=== PATIENT | female | born 1935 | race Asian ===

== ENCOUNTER 2016-09-12 12:25 | Outpatient (CLI) | payer MEDICARE, OTHER | END 2016-09-12 12:26 | disposition home or self-care (01) | DX: J18.9 Pneumonia, unspecified organism (principal); J98.19 Other pulmonary collapse ==

== ENCOUNTER 2016-10-06 12:56 | Emergency (ER) | payer MEDICARE, OTHER | END 2016-10-06 15:45 | disposition home or self-care (01) | DX: R04.2 Hemoptysis (principal); J98.19 Other pulmonary collapse; J44.9 Chronic obstructive pulmonary disease, unspecified; Z85.118 Personal history of other malignant neoplasm of bronchus and lung; Z87.01 Personal history of pneumonia (recurrent); Z87.891 Personal history of nicotine dependence ==

== ENCOUNTER 2016-11-20 16:56 | Outpatient (CLI) | payer MEDICARE, OTHER ==
--- NOTE | 2016-11-20 21:41 | CT Preliminary Report ---
Exam: CT Chest W/O IMPRESSION: 1. Masslike focus of right upper lobe airspace consolidation likely representing tumor right upper lo be and atelectasis is unchanged. There are stable reticulonodular opacities in the right lower lobe. No evidence of disease progression. 2. Stable, indeterminate left adrenal gland nodule. 3. 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 [facility] The call report notification system was initiated by Dr. Alejandro Navarrete at 17:37 hrs on 11/20/16. The above findings were discussed with Dr. Berrios by Dr. Alejandro Navarrete at 21:40 hrs on . SITE ID: [id number]
--- NOTE | 2016-11-20 21:44 | CT Report ---
EXAM: CT CHEST EXAM DATE: 11/20/2016 05:14 PM. CLINICAL HISTORY: Malignant neoplasm of upper lobe. COMPARISONS: 09/18/[address] TECHNIQUE: Routine helical CT imaging was performed through the chest. IV contrast: None. Reconstructions: Coron al and sagittal. In accordance with CT protocol optimization, one or more of the following dose reduction techniques w ere utilized for this exam: automated exposure control, adjustment of mA and/or KV based on patient s ize, or use of iterative reconstructive technique. FINDINGS: Lungs/Pleura: There is a masslike focus of airspace consolidation likely representing tumor and atele ctasis in the paramediastinal right upper lobe measuring 7.0 x 3.8 cm, unchanged from the previous ex am. There is obliteration of the right upper lobe bronchus. Reticular nodular opacities again seen in the superior segment of the right lower lobe, unchanged. No new lung nodules. No pleural effusion or pneumothorax. Mediastinum: Limited without contrast, no obvious lymphadenopathy. Diffuse atherosclerotic changes th roughout the aorta. There is an aneurysm involving the ascending aorta measuring 6.1 x 6.0 cm. There is also aneurysmal dilatation of the aortic isthmus to 5 cm. These are unchanged. Bones: Unremarkable. Visualized Abdomen: Stable 1.3 cm left adrenal gland nodule. The nodule demonstrates an attenuation v alue 34 Hounsfield units. Subcentimeter hypodensity in the left hepatic lobe is also unchanged. No ne w findings. Other: None. IMPRESSION: 1. Masslike focus of right upper lobe airspace consolidation likely representing tumor right upper lo be and atelectasis is unchanged. There are stable reticulonodular opacities in the right lower lobe. No evidence of disease progression. 2. Stable, indeterminate left adrenal gland nodule. 3. 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 [facility] The call report notification system was initiated by Dr. Alejandro Navarrete at 17:37 hrs on 11/20/16. The above findings were discussed with Dr. Berrios by Dr. Alejandro Navarrete at 21:40 hrs on . Referring Provider Line: [phone] SITE ID: [id number]
== END 2016-11-20 16:57 | disposition home or self-care (01) ==
LOC: DI 16:56
PROVIDERS: ATTEND Family Medicine
DX: C34.10 Malignant neoplasm of upper lobe, unspecified bronchus or lung (principal); E27.9 Disorder of adrenal gland, unspecified; J98.11 Atelectasis
CPT/HCPCS: 71250

== ENCOUNTER 2017-02-13 12:45 | Inpatient (IN) | payer MEDICARE, OTHER ==
--- NOTE | 2017-02-13 14:22 | ED Physician Documentation ---
PD HPI DYSPNEA - Stated complaint Stated Complaint: COUGH - Chief complaint Chief Complaint: Resp - History obtained from History obtained from: Patient - History of Present Illness Timing - onset: How many weeks ago (patient has been having progressively worse dyspnea for several weeks. Seen about a month ago on 01/08/17 in Oncology clinic with dyspnea and had xray showing mediastinal mass (prior history of lung CA) and had then outpt bronchoscopy and biopsy by Pulmonary in [place] about 2 weeks ago. She has had increasing dpsynea concurrent with that. Has had 4-5 days of some cough as well. With the increasing dyspnea,) Timing - details: Gradual onset, Still present Inciting event(s): No: URI Worsened by: No: Laying flat, Coughing Associated symptoms: No: Fever, Cough, Wheezing, Palpitations, Bilateral edema Similar symptoms before: Has not had sx before Recently seen: Not recently seen Review of Systems Constitutional: denies: Fever, Chills Nose: denies: Rhinorrhea / runny nose, Congestion Throat: denies: Sore throat Cardiac: denies: Chest pain / pressure, Palpitations Respiratory: denies: Dyspnea, Cough, Wheezing GI: denies: Nausea, Vomiting, Diarrhea : denies: Dysuria, Frequency Musculoskeletal: reports: Neck pain, Back pain, Extremity pain Neurologic: denies: Generalized weakness, Focal weakness, Numbness, Near syncope PD PAST MEDICAL HISTORY - Past Medical History Cardiovascular: None Respiratory: Other Neuro: None Endocrine/Autoimmune: None GI: None PHARMACY BENEFIT MANAGER: None : None HEENT: None Psych: None Musculoskeletal: None Derm: None - Past Surgical History Past Surgical History: Yes General: Colonoscopy - Present Medications Home Medications: Ambulatory Orders Medication Instructions Recorded Confirmed Aspirin [Aspir 81] 81 mg PO DAILY 01/17/13 02/13/17 Calcium Carbonate/Vitamin D3 2 each PO DAILY 01/17/13 02/13/17 [Calcarb 600 W-Vitamin D Tab] Acetaminophen [Tylenol] 650 mg PO TID PRN 07/14/13 02/13/17 [place]-3/Dha/Epa/Fish Oil [[place] 3 1 tab PO DAILY 11/22/15 02/13/17 500 Softgel] Fluticasone/Salmeterol [Advair 1 puffs INH BID 02/13/17 02/13/17 250-50 Diskus] Tiotropium [place] [Spiriva] 1 puffs INH DAILY 02/13/17 02/13/17 - Allergies Allergies/Adverse Reactions: Allergies Allergy/AdvReac Type Severity Reaction Status Date / Time No Known Drug Allergies Allergy Verified 02/13/17 13:03 - Living Situation Living Situation: reports: With spouse/s.o. Living Arrangement: reports: At home - Social History Does the pt smoke?: Yes Smoking Status: Former smoker Does the pt drink ETOH?: No Does the pt have substance abuse?: No - Family History Family history: reports: Non contributory - Immunizations Immunizations are current?: No Immunizations: TDAP >10years/unknown - POLST Patient has POLST: No PD ED PE NORMAL - Vitals Vital signs reviewed: Yes (Oxygenation good on NC; vitals are stable. ) - General General: Alert and oriented X 3, Well developed/nourished - HEENT HEENT: Atraumatic, Ears normal, Moist mucous membranes, Pharynx benign - Neck Neck: Supple, no meningeal sign, No adenopathy, No bruit, Other (JVD noted at 45 degrees. ) - Cardiac Cardiac: RRR, No murmur - Respiratory Respiratory: No: Clear bilaterally - Abdomen Abdomen: Soft, Non tender - Female Female : Deferred - Rectal Rectal: Deferred - Back Back: No CVA TTP - Derm Derm: Normal color, Warm and dry - Extremities Extremities: No tenderness to palpate, Normal ROM s pain, No edema, No calf tenderness / cord - Neuro Neuro: Alert and oriented X 3, No motor deficit, Normal speech Results - Vitals Vitals: Vital Signs - 24 hr 02/13/17 02/13/17 02/13/17 12:57 13:41 15:10 Temperature 36.3 C L Heart Rate 98 95 97 Respiratory 24 22 22 Rate Blood Pressure 130/58 L 131/78 H O2 Saturation 99 99 02/13/17 02/13/17 02/13/17 15:33 17:07 17:10 Temperature Heart Rate 97 94 94 Respiratory 20 30 H 26 H Rate Blood Pressure 132/66 H 138/108 H O2 Saturation 99 96 Oxygen O2 Source Nasal cannula Oxygen Flow Rate 4 - Rads (name of study) chest Radiology: Prelim report reviewed (apical right pneumothorax, right mediastinal mass, and moderate right pleural effusion, comparable to CT yesterday. ) PD MEDICAL DECISION MAKING - ED course Complexity details: reviewed results, considered differential (chest xray today seems comparable degree of PTX to CT yesterday. She had labs done just yesterday outpatient, so did not repeat them right off. Has PTX with bronchoscopy about 2 weeks ago, seems a bit long for pneumo to persist but could be. Her increasing dyspnea could reflect increasing effusion instead. ), d /w patient, d/w [facility] operations consultant (Dr. Figueroa, Surgery, and Dr. Flores, Hospitalist after talking with Dr. Kern, Oncology. ) Departure - Departure Disposition: 66 [facility] DC/Xfer Clinical Impression: Pleural effusion, Moderate COPD (chronic obstructive pulmonary disease) Pneumothorax Qualifiers: Pneumothorax type: postprocedural Qualified Code(s): J95.811 - Postprocedural pneumothorax Lung cancer Qualifiers: Laterality: right Lung location: upper lobe of lung Qualified Code(s): C34.11 - Malignant neoplasm of upper lobe, right bronchus or lung Dyspnea Qualifiers: Dyspnea type: shortness of breath Qualified Code(s): R06.02 - Shortness of breath Condition: Stable Discharge Date/Time: 02/13/17 18:04
[2017-02-13] MEDS ORDERED: IPRATROPIUM/ALBUTEROL 3 ML NEB INH STA (14:56)
--- NOTE | 2017-02-13 16:05 | XRAY Preliminary Report ---
Exam: XR Chest 2 View PA/LAT IMPRESSION: 1. Large right hilar or right paratracheal mass suspicious for neoplastic process. 2. Small right pneumothorax with small to moderate right pleural effusion. 3. Findings similar to CT chest yesterday. [facility] SITE ID: [id number]
--- NOTE | 2017-02-13 16:08 | XRAY Report ---
EXAM: CHEST RADIOGRAPHY EXAM DATE: 02/13/2017 03:54 PM. CLINICAL HISTORY: Cough and dyspnea. COMPARISON: Chest CT yesterday. TECHNIQUE: 2 views. FINDINGS: Lungs/Pleura: There is a small right apical pneumothorax with pleural separation of one knee 4 mm. Th ere is a small to moderate volume of right pleural fluid which has changed in location compared to th e previous CT. Left lung appears grossly clear. The trachea is midline. Mediastinum: There is a large right paratracheal or right hilar mass which persists. There is aortic arch atherosclerotic calcification. Other: None. IMPRESSION: 1. Large right hilar or right paratracheal mass suspicious for neoplastic process. 2. Small right pneumothorax with small to moderate right pleural effusion. 3. Findings similar to CT chest yesterday. [facility] Referring Provider Line: [phone] SITE ID: [id number]
[2017-02-13] MEDS ORDERED: DEXAMETHASONE 10 MG/ML VIAL IVP STA (16:50)
[2017-02-13] MEDS ORDERED: ALBUTEROL NEB 2.5 MG/3 ML INH STA (16:50)
[2017-02-13] MEDS ORDERED: DEXAMETHASONE 10 MG/ML VIAL ONE (17:01)
[2017-02-13] MEDS ORDERED: ONDANSETRON 4 MG/2 ML VIAL IVP PRN (17:16)
[2017-02-13] MEDS ORDERED: ZOLPIDEM 5 MG TABLET PO PRN (17:16)
[2017-02-13] MEDS ORDERED: HYDROcod/ACETAM 10 MG/325 MG TABLET PO PRN (17:16)
[2017-02-13] MEDS ORDERED: ALBUTEROL NEB 2.5 MG/3 ML INH PRN (17:16)
[2017-02-13] MEDS ORDERED: SODIUM CHLORIDE FLUSH 0.9% 10 ML SYRINGE IVP PRN (17:16)
[2017-02-13] MEDS ORDERED: ACETAMINOPHEN 325 MG TABLET PO PRN (17:16)
[2017-02-13] MEDS ORDERED: HYDROcod/ACETAM 5/325 MG TABLET PO PRN (17:16)
[2017-02-13] MEDS: NS W/20 MEQ KCL 1,000 ML IV SCH (19:36)
[2017-02-13] MEDS: cefTRIAXone 2 GM in SODIUM CHLORIDE 0.9% MINIBAG 100 ML IV SCH (19:36)
[2017-02-13] MEDS: SODIUM CHLORIDE FLUSH 0.9% 10 ML SYRINGE IVP SCH (19:44)
[2017-02-13] MEDS: FORMOTEROL FUMARATE NEB 20 MCG/2 ML INH SCH (20:14)
[2017-02-13] MEDS: BUDESONIDE 0.5 MG/2 ML NEB INH SCH (20:14)
[2017-02-13] MEDS: IPRATROPIUM/ALBUTEROL 3 ML NEB INH PRN (20:14)
[2017-02-13] MEDS: AZITHROMYCIN INJ 500 MG in SODIUM CHLORIDE 0.9% 250 ML IV SCH (20:51)
[2017-02-14] MEDS: SODIUM CHLORIDE FLUSH 0.9% 10 ML SYRINGE IVP SCH ×3 (05:13→20:25)
[2017-02-14 06:15] LABS: BASOPHILS % (AUTO) 0.1 %; HGB - HEMOGLOBIN 11.5 g/dL (12.0-16.0); LYMPHOCYTES % (AUTO) 4.9 %; MEAN CORPUSCULAR HEMOGLOBIN 30.3 pg (27.0-31.0); MEAN CORPUSCULAR HGB CONC 32.9 g/dL (32.0-36.0); MEAN PLATELET VOLUME 6.1 fL (7.9-10.8); MONOCYTES % (AUTO) 1.3 %; NEUTROPHILS % (AUTO) 93.7 %; RED BLOOD COUNT 3.81 10^6/uL (4.20-5.40); RED CELL DISTRIBUTION WIDTH 13.8 % (12.0-15.0); UNCORRECTED WHITE BLOOD COUNT 9.6 x10^3/uL; WHITE BLOOD COUNT 9.6 x10^3/uL (4.8-10.8)
[2017-02-14 06:19] LABS: CALCIUM 8.4 mg/dL (8.5-10.3); CREATININE 0.3 mg/dL (0.4-1.0); POTASSIUM 4.4 mmol/L (3.5-5.0)
[2017-02-14 06:42] LABS: BAND NEUTROPHILS % (MANUAL) 10 %; LYMPHOCYTES % (MANUAL) 7 %; NEUTROPHILS % (MANUAL) 83 %; PLATELET ESTIMATE, MANUAL NORMAL (130-450,000) (NORMAL); TOTAL CELLS COUNTED 100
[2017-02-14 06:43] LABS: NP AUTO DIFFERENTIAL? YES; NP MAN DIFFERENTIAL? NO
[2017-02-14] MEDS: FORMOTEROL FUMARATE NEB 20 MCG/2 ML INH SCH (07:33)
[2017-02-14] MEDS: BUDESONIDE 0.5 MG/2 ML NEB INH SCH (07:34)
[2017-02-14] MEDS: cefTRIAXone 2 GM in SODIUM CHLORIDE 0.9% MINIBAG 100 ML IV SCH (08:13)
[2017-02-14] MEDS: SACCHAROMYCES BOULARDII 250 MG CAPSULE PO SCH ×2 (08:13→16:23)
[2017-02-14] MEDS: ENOXAPARIN 40 MG/0.4 ML SYRINGE SUBQ SCH (08:14)
[2017-02-14] MEDS: POLYETHYLENE GLYCOL 3350 17 GM PACKET PO SCH (08:16)
[2017-02-14 08:57] LABS: INR 1.1 (0.8-1.2); PT - PROTHROMBIN TIME 12.6 secs (9.9-12.6)
[2017-02-14 09:05] LABS: PARTIAL THROMBOPLASTIN TIME 31.5 secs (24.9-33.3)
[2017-02-14] MEDS: AZITHROMYCIN INJ 500 MG in SODIUM CHLORIDE 0.9% 250 ML IV SCH (09:41)
--- NOTE | 2017-02-14 11:18 | PROVIDER PROGRESS NOTE ---
Assessment/Plan - Problem List (1) Lung cancer Qualifiers: Laterality: right Lung location: upper lobe of lung Qualified Code(s): C34.11 - Malignant neoplasm of upper lobe, right bronchus or lung Assessment/Plan: She has recurrent adenocarcinoma. It is not clear that she and know that. Daughter from [place] was surprised to hear that. Have a call into Dr. Kern. will ask her about communication and plan She is very sx from it. (2) Pleural effusion Assessment/Plan: She is to get it drained this afternoon Will also see if can do a chest tube for the pneumo. (3) Pneumothorax Qualifiers: Pneumothorax type: postprocedural Qualified Code(s): J95.811 - Postprocedural pneumothorax; J95.81 - Postprocedural pneumothorax and air leak Assessment/Plan: see above Not clear she is sz from it. (4) Pneumonia Assessment/Plan: She has R lower lobe pneumonia. She is on antibx she was on amoxicillin for without improvement. Will have to repeat CXR or CAT. - Current Meds Current Meds: Current Medications Generic Name Dose Route Start Last Admin Trade Name Freq PRN Reason Stop Dose Admin Albuterol 2.5 mg 02/13/17 17:16 02/14/17 02:34 INH 2.5 mg Q4HR PRN Administration Wheezing Albuterol/Ipratropium 3 ml 02/13/17 17:16 02/13/17 20:14 Duoneb INH 3 ml RTQID PRN Administration Wheezing Budesonide 0.5 mg 02/13/17 19:00 02/14/17 07:34 Pulmicort INH 0.5 mg RTBID RUDDY Administration Enoxaparin Sodium 40 mg 02/14/17 09:00 02/14/17 08:14 Lovenox SUBQ Not Given DAILY RUDDY Formoterol Fumarate 20 mcg 02/13/17 19:00 02/14/17 07:33 Perforomist INH 20 mcg RTBID RUDDY Administration Potassium Chloride/Sodium Chloride 1,000 mls @ 75 mls/hr 02/13/17 18:00 19:36 Normal Saline 0.9% W/20 Meq Kcl IV 75 mls/hr .[id number] RUDDY Administration Azithromycin 500 mg/ Sodium 250 mls @ 250 mls/hr 02/13/17 20:00 02/14/17 09:41 Chloride IV 250 mls/hr DAILY@1000 RUDDY Administration Ceftriaxone Sodium 2 gm/ 100 mls @ 200 mls/hr 02/13/17 19:00 02/14/17 08:13 Sodium Chloride IV 200 mls/hr DAILY RUDDY Administration Polyethylene Glycol 17 gm 02/14/17 09:00 02/14/17 08:16 Miralax PO Not Given DAILY RUDDY Saccharomyces Boulardii 250 mg 02/14/17 08:00 02/14/17 08:13 Florastor PO 250 mg BIDWM RUDDY Administration Sodium Chloride 10 ml 02/13/17 22:00 02/14/17 05:13 Normal Saline Flush 0.9% IVP Not Given Q8HR RUDDY - Lab Result Fish Bone Diagrams: 02/14/17 05:42 02/14/17 05:42 - Additional Planning My Orders: My Active Orders 02/13/17 19:00 Budesonide [Pulmicort] 0.5 mg INH RTBID Formoterol Fumarate [Perforomist] 20 mcg INH RTBID 02/13/17 20:21 RT [Nebulizer/MDI Tx.] [RC] QID Subjective - Subjective Patient Reports: Resting Comfortably, Fatigue, Pain, Shortness of Breath Nursing Reports: Pain, Shortness of Breath Objective Vital Signs: Vital Signs - 24 hr 02/13/17 02/13/17 02/13/17 17:55 18:10 20:15 Temperature 37.1 C Heart Rate 96 96 Heart Rate [ 98 Brachial] Respiratory 28 H 24 24 Rate Blood Pressure 122/62 Blood Pressure 140/82 H [Left Brachial artery] O2 Saturation 96 96 02/13/17 02/14/17 02/14/17 23:39 07:33 08:15 Temperature 36.4 C L 36.6 C Heart Rate 95 Heart Rate [ 90 96 Brachial] Respiratory 24 24 19 Rate Blood Pressure Blood Pressure 144/81 H 126/75 [Left Brachial artery] O2 Saturation 96 98 Oxygen O2 Source Nasal cannula I&O (Last 24 Hrs): Intake and Output Totals x24h 02/12/17 02/13/17 02/14/17 23:59 23:59 23:59 Intake Total 770 100 Output Total 300 250 Balance 470 -150 General: Alert, Oriented x3, Cooperative HEENT: PERRLA, EOMI Neck: No JVD, No thyromegaly Neuro: Alert Cardiovascular: Regular rate, No murmurs Respiratory: Wheezes, Rales, Rhonchi Abdomen: Soft, No tenderness Skin: No rashes, No breakdown - Results Results: Laboratory Results WBC 9.6 x10^3/uL (4.8-10.8) 02/14/17 05:42 RBC 3.81 10^6/uL (4.20-5.40) L 02/14/17 05:42 Hgb 11.5 g/dL (12.0-16.0) L 02/14/17 05:42 Hct 35.0 % (37.0-47.0) L 02/14/17 05:42 MCV 92.0 fL (81.0-99.0) 02/14/17 05:42 MCH 30.3 pg (27.0-31.0) 02/14/17 05:42 MCHC 32.9 g/dL (32.0-36.0) 02/14/17 05:42 RDW 13.8 % (12.0-15.0) 02/14/17 05:42 Plt Count 317 10^3/uL (130-450) 02/14/17 05:42 MPV 6.1 fL (7.9-10.8) L 02/14/17 05:42 Neut # Not Reportable 02/14/17 05:42 Lymph # Not Reportable 02/14/17 05:42 [place] # Not Reportable 02/14/17 05:42 Eos # Not Reportable 02/14/17 05:42 Baso # Not Reportable 02/14/17 05:42 Absolute Nucleated RBC Not Reportable 02/14/17 05:42 Total Counted 100 02/14/17 05:42 Band Neuts % (Manual) 10 % (0-10) 02/14/17 05:42 Neutrophils # (Manual) 8.9 10^3/uL (1.5-6.6) H 02/14/17 05:42 Lymphocytes # (Manual) 0.7 10^3/uL (1.5-3.5) L 02/14/17 05:42 Nucleated RBCs Not Reportable 02/14/17 05:42 Differential Comment MANUAL DIFFERENTIAL 02/14/17 05:42 Platelet Estimate NORMAL (130-450,000) (NORMAL) 02/14/17 05:42 RBC Morph Micro Appear NORMAL APPEARANCE (NORMAL) 02/14/17 05:42 PT 12.6 secs (9.9-12.6) 02/14/17 08:38 INR 1.1 (0.8-1.2) 02/14/17 08:38 APTT 31.5 secs (24.9-33.3) 02/14/17 08:38 Sodium 137 mmol/L (135-145) 02/14/17 05:42 Potassium 4.4 mmol/L (3.5-5.0) 02/14/17 05:42 Chloride 100 mmol/L (101-111) L 02/14/17 05:42 Carbon Dioxide 29 mmol/L (21-32) 02/14/17 05:42 Anion Gap 8.0 (6-13) 02/14/17 05:42 BUN 9 mg/dL (6-20) 02/14/17 05:42 Creatinine 0.3 mg/dL (0.4-1.0) L 02/14/17 05:42 Estimated GFR (MDRD) 212 (>89) 02/14/17 05:42 Glucose 177 mg/dL (70-100) H 02/14/17 05:42 Calcium 8.4 mg/dL (8.5-10.3) L 02/14/17 05:42 - Procedures Procedures: Procedures INCIS W REM OF FORIEGN BODY OR DEV FROM SKIN & SUBCUT TISSUE (08/25/13) INSERTION OF TOTALLY IMPLANTABLE VASC ACCESS DEVIC (03/20/13)
--- NOTE | 2017-02-14 11:36 | PROVIDER PROGRESS NOTE ---
Assessment/Plan - Problem List (1) Pneumothorax Qualifiers: Pneumothorax type: postprocedural Qualified Code(s): J95.811 - Postprocedural pneumothorax; J95.81 - Postprocedural pneumothorax and air leak Assessment/Plan: 82 yo Female with multiple medical problems including Right upper lobe Lung CA, found to have small PTX and Pleural Effusion Patient to go to IR today for drainage and possible pigtail catheter placement. Will Place chest tube if patient's condition not improving or not able to improve after IR Medical team to manage - Current Meds Current Meds: Current Medications Generic Name Dose Route Start Last Admin Trade Name Freq PRN Reason Stop Dose Admin Albuterol 2.5 mg 02/13/17 17:16 02/14/17 02:34 INH 2.5 mg Q4HR PRN Administration Wheezing Albuterol/Ipratropium 3 ml 02/13/17 17:16 02/13/17 20:14 Duoneb INH 3 ml RTQID PRN Administration Wheezing Budesonide 0.5 mg 02/13/17 19:00 02/14/17 07:34 Pulmicort INH 0.5 mg RTBID RUDDY Administration Enoxaparin Sodium 40 mg 02/14/17 09:00 02/14/17 08:14 Lovenox SUBQ Not Given DAILY RUDDY Formoterol Fumarate 20 mcg 02/13/17 19:00 02/14/17 07:33 Perforomist INH 20 mcg RTBID RUDDY Administration Potassium Chloride/Sodium Chloride 1,000 mls @ 75 mls/hr 02/13/17 18:00 19:36 Normal Saline 0.9% W/20 Meq Kcl IV 75 mls/hr .[id number] RUDDY Administration Azithromycin 500 mg/ Sodium 250 mls @ 250 mls/hr 02/13/17 20:00 02/14/17 09:41 Chloride IV 250 mls/hr DAILY@1000 RUDDY Administration Ceftriaxone Sodium 2 gm/ 100 mls @ 200 mls/hr 02/13/17 19:00 02/14/17 08:13 Sodium Chloride IV 200 mls/hr DAILY RUDDY Administration Polyethylene Glycol 17 gm 02/14/17 09:00 02/14/17 08:16 Miralax PO Not Given DAILY RUDDY Saccharomyces Boulardii 250 mg 02/14/17 08:00 02/14/17 08:13 Florastor PO 250 mg BIDWM RUDDY Administration Sodium Chloride 10 ml 02/13/17 22:00 02/14/17 05:13 Normal Saline Flush 0.9% IVP Not Given Q8HR RUDDY - Lab Result Fish Bone Diagrams: 02/14/17 05:42 02/14/17 05:42 Subjective - Subjective Patient Reports: Resting Comfortably (Pt seen this am.) Nursing Reports: No Complaints Objective Vital Signs: Vital Signs - 24 hr 02/13/17 02/13/17 02/13/17 17:55 18:10 20:15 Temperature 37.1 C Heart Rate 96 96 Heart Rate [ 98 Brachial] Respiratory 28 H 24 24 Rate Blood Pressure 122/62 Blood Pressure 140/82 H [Left Brachial artery] O2 Saturation 96 96 02/13/17 02/14/17 02/14/17 23:39 07:33 08:15 Temperature 36.4 C L 36.6 C Heart Rate 95 Heart Rate [ 90 96 Brachial] Respiratory 24 24 19 Rate Blood Pressure Blood Pressure 144/81 H 126/75 [Left Brachial artery] O2 Saturation 96 98 Oxygen O2 Source Nasal cannula I&O (Last 24 Hrs): Intake and Output Totals x24h 02/12/17 02/13/17 02/14/17 23:59 23:59 23:59 Intake Total 770 100 Output Total 300 250 Balance 470 -150 General: Alert, Oriented x3 HEENT: EOMI Neck: Supple Cardiovascular: Regular rate Respiratory: Rales (Right side), Rhonchi Abdomen: Normal bowel sounds, Soft - Results Results: Laboratory Results WBC 9.6 x10^3/uL (4.8-10.8) 02/14/17 05:42 RBC 3.81 10^6/uL (4.20-5.40) L 02/14/17 05:42 Hgb 11.5 g/dL (12.0-16.0) L 02/14/17 05:42 Hct 35.0 % (37.0-47.0) L 02/14/17 05:42 MCV 92.0 fL (81.0-99.0) 02/14/17 05:42 MCH 30.3 pg (27.0-31.0) 02/14/17 05:42 MCHC 32.9 g/dL (32.0-36.0) 02/14/17 05:42 RDW 13.8 % (12.0-15.0) 02/14/17 05:42 Plt Count 317 10^3/uL (130-450) 02/14/17 05:42 MPV 6.1 fL (7.9-10.8) L 02/14/17 05:42 Neut # Not Reportable 02/14/17 05:42 Lymph # Not Reportable 02/14/17 05:42 [place] # Not Reportable 02/14/17 05:42 Eos # Not Reportable 02/14/17 05:42 Baso # Not Reportable 02/14/17 05:42 Absolute Nucleated RBC Not Reportable 02/14/17 05:42 Total Counted 100 02/14/17 05:42 Band Neuts % (Manual) 10 % (0-10) 02/14/17 05:42 Neutrophils # (Manual) 8.9 10^3/uL (1.5-6.6) H 02/14/17 05:42 Lymphocytes # (Manual) 0.7 10^3/uL (1.5-3.5) L 02/14/17 05:42 Nucleated RBCs Not Reportable 02/14/17 05:42 Differential Comment MANUAL DIFFERENTIAL 02/14/17 05:42 Platelet Estimate NORMAL (130-450,000) (NORMAL) 02/14/17 05:42 RBC Morph Micro Appear NORMAL APPEARANCE (NORMAL) 02/14/17 05:42 PT 12.6 secs (9.9-12.6) 02/14/17 08:38 INR 1.1 (0.8-1.2) 02/14/17 08:38 APTT 31.5 secs (24.9-33.3) 02/14/17 08:38 Sodium 137 mmol/L (135-145) 02/14/17 05:42 Potassium 4.4 mmol/L (3.5-5.0) 02/14/17 05:42 Chloride 100 mmol/L (101-111) L 02/14/17 05:42 Carbon Dioxide 29 mmol/L (21-32) 02/14/17 05:42 Anion Gap 8.0 (6-13) 02/14/17 05:42 BUN 9 mg/dL (6-20) 02/14/17 05:42 Creatinine 0.3 mg/dL (0.4-1.0) L 02/14/17 05:42 Estimated GFR (MDRD) 212 (>89) 02/14/17 05:42 Glucose 177 mg/dL (70-100) H 02/14/17 05:42 Calcium 8.4 mg/dL (8.5-10.3) L 02/14/17 05:42 - Procedures Procedures: Procedures INCIS W REM OF FORIEGN BODY OR DEV FROM SKIN & SUBCUT TISSUE (08/25/13) INSERTION OF TOTALLY IMPLANTABLE VASC ACCESS DEVIC (03/20/13)
--- NOTE | 2017-02-14 13:16 | HISTORY & PHYSICAL EXAMINATION ---
DATE OF ADMISSION: 02/13/2017 CHIEF COMPLAINT: Shortness of breath. IDENTIFYING INFORMATION: The patient and her , primary source of history supplemented by son and daughter who are also present. The patient's information is also supplemented by the handoff from the emergency department physician, Dr. Oneill. Personal review of past medical records and data collected during this visit also used along with her examination and evaluation of this person in preparation of this document. HISTORY OF PRESENT ILLNESS: Jigar having increasing shortness of breath, she has had a bad cough, she has had problems with being more fatigued and not being able to walk very much. The patient says she has not had any fevers. The patient did have hemoptysis last month and went to [place] and had a bronchoscopy done. Two days ago, the patient saw her oncologist, Dr. Aneta Kern. The patient had a CT scan done yesterday as well. The patient came to the emergency department today because she was so short of breath. In the emergency department, she was found to have, on chest x-ray and review of the CT scan from yesterday, a small right upper lobe pneumothorax. Also, the CT showed an infiltrate in the right lower lobe which was considered by Dr. Aneta Kern to be postobstructive pneumonia that she previously tried to treat with amoxicillin alone. The patient was still getting worse and she had the pleural effusion on the right side as well. REVIEW OF SYSTEMS: The patient has had no fever, chills, sweats, although she says she sometimes feels hot. The patient has had a persistent nasty cough, which despite hydrocodone has not improved other than she does not cough as hard. Her says it is like she cannot do anything but cough. The patient has had loss of appetite and loss of weight, 10 pounds over the last month. The patient's bowels have been okay. Urination has been okay. The rest of the complete review of systems is negative. PAST MEDICAL HISTORY: Remarkable for lung cancer in 2012 with chemotherapy. SURGICAL HISTORY: Colonoscopy. ALLERGIES: NONE KNOWN. MEDICATIONS 1. Aspirin 81 mg a day. 2. Calcium carbonate and vitamin D2, each daily. 3. Lorazepam 0.5, 1 mg q.i.d. 4. Spiriva 18 mcg a day. 5. Hydrocortisone topical t.i.d. 6. Tylenol 650 three times a day as needed. 7. Advair 100/50 inhaler twice a day. PERSONAL AND SOCIAL HISTORY: The patient was born in [place], raised there until she her at age 21. The patient smoked, quit 15 years ago. She has never drank alcohol. The patient is and has 4 children, 3 girls and 1 boy. FAMILY HISTORY: Negative for diabetes. She does not know her family history other than that. Unknown if there is heart disease or other cancers in the family. PHYSICAL EXAMINATION VITAL SIGNS: 36.3, 98, 24, 130/58, 99 on 4 liters. GENERAL: The patient is a well-developed and well-nourished female, small stature. EYES: EOMs within normal limits. PERRL. Nonicteric. MOUTH: Edentulous, somewhat dry mucous membranes. NECK: No lymphadenopathy, no thyromegaly. No tracheal deviation. CHEST WALL: Symmetric, nontender. No breast exam conducted. HEART: Sinus rhythm. No murmur, rubs, clicks. LUNGS: She has rales and rhonchi primarily of right lung, diminished in the base on the right more than the left. Occasional wheeze as well. ABDOMEN: Soft, nontender. Normal bowel sounds. No hepatosplenomegaly. RECTAL/GENITAL: Exams not done. VASCULAR: She has palpable pulses to the posterior tibial bilaterally. No cyanosis. EXTREMITIES: No edema. NEUROLOGIC: Cognitive intact. Cranial nerves intact. Motor intact. The patient is hard of hearing and wears a hearing aid normally but left it at home. SKIN: No suspicious lesions or dermatitis on limited exam. FINDINGS: Chest CT, impression: Progression of disease, moderate right effusion with small right pneumothorax, which may be related to previous thoracentesis. Progression of left adrenal lesion and retroperitoneal adenopathy. The patient's laboratory from 02/12/2017 shows white count 10.4, hemoglobin and hematocrit 12 and 36, platelet count 338. The patient's creatinine is 0.5, LDH 135 and globulin 4.7. SUMMARY: This is an 82-year-old female with increasing cough and shortness of breath, previously had a biopsy at the end of last month that showed adenocarcinoma. It is unclear if the patient and family know the results. She comes into the hospital today with right pleural effusion, pneumothorax, and CT scan from yesterday shows increasing carcinoma. She was admitted for the pneumonia and evaluation for a thoracentesis for the fluid in the lung and a chest tube for the pneumothorax. DIAGNOSES 1. Pneumonia. 2. 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 3. Right pleural effusion. 4. Presumptive malignant effusion. 5. Pneumothorax, uncertain etiology. DISCUSSION/DECISION MAKING 1. The pneumonia will be treated with IV antibiotics, Rocephin and Zithromax, may expand coverage if needed given her relative immunocompromised status and her pneumonia, which may be postobstructive. 2. Recurrent adenoma. The patient will have followup visit, already scheduled, with Dr. Aneta Kern. 3. Right pleural effusion. Will have Interventional Radiology drain the pleural effusion to see if there is symptomatic improvement and the pneumothorax will also be evaluated for possible chest tube. Dr. Figueroa has been consulted and decided to have the IR approach to the pneumothorax as well. HOSPITAL ISSUES 1. Code status: FULL CODE. 2. VTE: Enoxaparin subcu. 3. Diet: Regular diet. 4. Activity: As tolerated. 5. Tubes and lines: She will have a peripheral IV. 6. Hospital status: She is inpatient requiring at least 2 nights to complete inpatient studies and decide if the pneumonia is responding or needs increased antibiotic coverage. 7. Length of stay: Estimated at 3 nights. 8. Disposition: Home with family. JOB #: [id number] EXT JOB #:[id number]
[2017-02-14] MEDS: NS W/20 MEQ KCL 1,000 ML IV SCH (16:23)
--- NOTE | 2017-02-14 16:30 | Ultrasound Report ---
ULTRASOUND-GUIDED RIGHT THORACENTESIS: 02/14/2017 CLINICAL INDICATION: Pleural effusion. Following obtaining informed consent, a suitable site on the patient's right posterior thorax was clem ntified with ultrasound. The skin was prepped and draped in the usual sterile fashion. The skin and soft tissues were anesthetized with lidocaine. A Hejc-N-Fyufvark catheter was inserted into the rig ht pleural space, and approximately 1100 mL of fluid was removed without difficulty. The patient elda erated the procedure well. No immediate complications. IMPRESSION: SUCCESSFUL RIGHT ULTRASOUND-GUIDED THORACENTESIS, YIELDING APPROXIMATELY 1100 ML OF FLUI D. 16:9:06 JOB #: [id number] EXT JOB #:[id number]
[2017-02-14] MEDS ORDERED: BUFFERED LIDOCAINE 10 ML SYRINGE IU ONE (16:49)
[2017-02-15] MEDS: SODIUM CHLORIDE FLUSH 0.9% 10 ML SYRINGE IVP SCH (05:04)
[2017-02-15] MEDS: NS W/20 MEQ KCL 1,000 ML IV SCH (05:07)
[2017-02-15 06:32] LABS: BASOPHILS % (AUTO) 0.2 %; EOSINOPHILS % (AUTO) 7.8 %; HCT - HEMATOCRIT 34.6 % (37.0-47.0); HGB - HEMOGLOBIN 11.2 g/dL (12.0-16.0); LYMPHOCYTES % (AUTO) 8.2 %; MEAN CORPUSCULAR HGB CONC 32.3 g/dL (32.0-36.0); MEAN CORPUSCULAR VOLUME 92.9 fL (81.0-99.0); MEAN PLATELET VOLUME 6.3 fL (7.9-10.8); MONOCYTES # (AUTO) 0.8 10^3/uL (0.0-1.0); MONOCYTES % (AUTO) 6.4 %; NEUTROPHILS # (AUTO) 9.5 10^3/uL (1.5-6.6); NEUTROPHILS % (AUTO) 77.4 %; RED BLOOD COUNT 3.73 10^6/uL (4.20-5.40); RED CELL DISTRIBUTION WIDTH 13.8 % (12.0-15.0); UNCORRECTED WHITE BLOOD COUNT 12.3 x10^3/uL; WHITE BLOOD COUNT 12.3 x10^3/uL (4.8-10.8)
[2017-02-15 06:36] LABS: CALCIUM 8.3 mg/dL (8.5-10.3); CREATININE 0.3 mg/dL (0.4-1.0); POTASSIUM 4.1 mmol/L (3.5-5.0)
--- NOTE | 2017-02-15 07:23 | XRAY Preliminary Report ---
Exam: XR Chest 2 View PA/LAT IMPRESSION: Interval decrease in size of the small right apical pneumothorax. Medial right mass as be fore. [facility] SITE ID: [id number]
--- NOTE | 2017-02-15 07:25 | XRAY Report ---
EXAM: CHEST RADIOGRAPHY EXAM DATE: 02/15/2017 07:12 AM. CLINICAL HISTORY: F/U effusion. COMPARISON: 02/13/2017. TECHNIQUE: 2 views. FINDINGS: Lungs/Pleura: Small right apical pneumothorax with 16 mm of pleural separation (previously 24 mm). No left pneumothorax. Small right pleural effusion similar to prior. No left pleural effusion. Mediastinum: Large right paratracheal/suprahilar mass is again noted. The cardiac silhouette is sandy l in size. Tortuous, atherosclerotic thoracic aorta. Other: None. IMPRESSION: Interval decrease in size of the small right apical pneumothorax. Medial right mass as be fore. [facility] Referring Provider Line: [phone] SITE ID: [id number]
[2017-02-15] MEDS: FORMOTEROL FUMARATE NEB 20 MCG/2 ML INH SCH ×2 (07:36)
[2017-02-15] MEDS: BUDESONIDE 0.5 MG/2 ML NEB INH SCH ×2 (07:36)
[2017-02-15] MEDS: IPRATROPIUM/ALBUTEROL 3 ML NEB INH PRN (07:36)
[2017-02-15] MEDS: POLYETHYLENE GLYCOL 3350 17 GM PACKET PO SCH (09:10)
[2017-02-15] MEDS: SACCHAROMYCES BOULARDII 250 MG CAPSULE PO SCH (09:10)
[2017-02-15] MEDS: ENOXAPARIN 40 MG/0.4 ML SYRINGE SUBQ SCH (09:11)
[2017-02-15] MEDS: cefTRIAXone 2 GM in SODIUM CHLORIDE 0.9% MINIBAG 100 ML IV SCH (09:14)
[2017-02-15 10:05] VITALS: BP 129/76
--- NOTE | 2017-02-15 10:11 | Discharge Plan ---
Discharge Plan Disposition: Home, Self Care Condition: Fair Prescriptions: Hydrocodone/Acetaminophen [Hydrocodon-Acetaminophen 5-325] 1 each PO Q4HR #40 tablet Amox/Clav 875/125 [Augmentin] 1 each PO Q12H #14 tablet Diet: Regular Activity Restrictions: Activity as Tolerated Weight Bearing: Full Weight Additional Instructions or Follow Up instructions: Keep your appt. on Saturday with Dr. Kern. Be careful with your Oxygen tubing when you are moving around. Thank you Dr. Mark Don Smoking: If you smoke, Please STOP! Call for help. Follow-up with: Doc Berrios MD [Primary Care Provider] - 2 Weeks Zacarias Kern MD [Physician No Access] - 1 Week (Keep appt next Saturday)
[2017-02-15] MEDS: AZITHROMYCIN INJ 500 MG in SODIUM CHLORIDE 0.9% 250 ML IV SCH (10:36)
--- NOTE | 2017-02-16 08:28 | DISCHARGE SUMMARY ---
DATE OF ADMISSION: 02/13/2017 DATE OF DISCHARGE: 02/15/2017 PRIMARY CARE PHYSICIAN: Doc Berrios M.D. ONCOLOGIST: Zacarias Kern M.D. ADMISSION DIAGNOSES 1. Pneumonia. 2. Recurrent adenocarcinoma of the lung with presumptive metastases to the adrenal gland. 3. Right pleural effusion. 4. Presumptive malignant effusion. 5. Pneumothorax, uncertain etiology. DISCHARGE DIAGNOSES 1. Right lower lobe pneumonia, bacteria unspecified. On antibiotics for the pneumonia. 2. Recurrent adenocarcinoma of the lung with metastases. 3. Right pleural effusion status post thoracentesis. 4. Presumptive malignant effusion. 5. Pneumothorax, smaller after thoracentesis. SPECIAL PROCEDURES: The patient had a thoracentesis under ultrasound guidance with removal of 1.1 lit ers of fluid without complication. CONSULTATIONS: Telephone consultation with Aneta Kern. HOSPITAL COURSE: The patient's presentation, emergency department evaluation, and hospital plan are w ell described in the History and Physical, see copy of same. SUMMARY: The patient is an 82-year-old female with increasing cough, shortness of breath, who previou sly had a biopsy at the end of last month that showed adenocarcinoma. It is unclear if the patient or family knows the result. She comes in to the hospital today with a right pleural effusion, pneumotho rax, CT scan from yesterday that shows increasing carcinoma. She was admitted for pneumonia and evalu ation for thoracentesis for the fluid in the lungs and a chest tube for the pneumothorax. The patient the following day had the thoracentesis as noted above. The patient's breathing was impro freya, still had a very bad cough. The family were very concerned about this cough, the weight loss, fa tigue, and breathing problems. The day of discharge there was a family conference with the patient, the patient's , the son, and one of the daughters, in which it was explained to everybody that Aneta Kern had been consulted b y telephone and that there was cancer in the biopsy done from the bronchoscopy, and that she, the pat ient, had an appointment to see Aneta Kern in the afternoon of this following Saturday for consultatio n for treatment options. The patient was told not expect the cough to get dramatically better at this point. She would continue antibiotics p.o., however. DAY OF DISCHARGE PHYSICAL EXAMINATION VITAL SIGNS: 36.5, 87, 129/76, 24, 98% room air saturation on 2 liters. The patient was already on O2 at home 3.5 liters, according to the . GENERAL: The patient is an elderly [place] female who was in some distress from the perennial cough and requiring oxygen. The patient is also very hard of hearing, making communication challenging. EYES: EOM within normal limits, PERRL, nonicteric. MOUTH AND THROAT: Moist mucous membranes. No other pathology noted. NECK: No lymphadenopathy, no thyromegaly, no JVD. CHEST WALL: Nontender. Symmetric. No breast exam done. HEART: Sinus rhythm. No murmur, rubs, clicks heard. LUNGS: Have rhonchi and crackles on the right side predominantly. Diminished sounds, right greater th an left base. ABDOMEN: Soft, nontender. Normal bowel sounds. No hepatosplenomegaly. RECTAL/GENITAL: No rectal or genital exam done. EXTREMITIES: Without edema. VASCULAR: Pulses 1+ pulses to posterior tibial. No cyanosis and normal capillary refill. NEUROLOGIC: Cognitive intact. Cranial nerves intact except for otic, 8th nerve. Patient's motor intac t. Gait was not tested. LABORATORY DATA: She has a white count of 12.3, 11 and 34 hemoglobin and hematocrit. Sodium 140, pota ssium 4.1, chloride 107, CO2 is 28, BUN 8, creatinine 0.3, glucose is 129, calcium 8.4. DISCHARGE MEDICATIONS She is discharged on her: 1. [place] 3 fish oil 1 tab a day. 2. Calcium carbonate with vitamin D3 two daily. 3. Aspirin 81 mg a day. 4. Tylenol 650 a day. 5. Advair 250/50 one puff twice a day. 6. Spiriva 1 puff a day. 7. Hydrocodone/acetaminophen 5/325 one every 4 hours as needed. 8. Amoxicillin/clavulanic acid 875/125 one b.i.d. for a week. Patient is to see her PCP in the next 1-[address] Aneta Kern, keep the appointment next Saturday at 4:45. The patient was, as noted above, sent home on oxygen. Time spent in discharge activity, including counseling family and patient, collaboration with Jayme monreal, nursing staff, is 40 minutes. Patient examined on day of discharge as noted above. JOB #: [id number] EXT JOB #:[id number]
== END 2017-02-15 11:34 | disposition home or self-care (01) | DRG 199 ==
LOC: ED 12:45 → MS 17:16
PROVIDERS: ADMIT Internal Medicine; ATTEND Internal Medicine
PROC: 0W993ZZ Drainage of Right Pleural Cavity, Percutaneous Approach (ICD-10-PCS; principal; 2017-02-14)
DX: J90 Pleural effusion, not elsewhere classified (principal); J44.9 Chronic obstructive pulmonary disease, unspecified; J95.811 Postprocedural pneumothorax; Z85.118 Personal history of other malignant neoplasm of bronchus and lung; J18.1 Lobar pneumonia, unspecified organism; C34.11 Malignant neoplasm of upper lobe, right bronchus or lung; J91.0 Malignant pleural effusion; C79.71 Secondary malignant neoplasm of right adrenal gland; C79.72 Secondary malignant neoplasm of left adrenal gland; Y65.8 Other specified misadventures during surgical and medical care; Z99.81 Dependence on supplemental oxygen; R63.4 Abnormal weight loss; Z68.23 Body mass index [BMI] 23.0-23.9, adult; Z79.82 Long term (current) use of aspirin; Z79.51 Long term (current) use of inhaled steroids; Z79.899 Other long term (current) drug therapy; Z87.891 Personal history of nicotine dependence
CPT/HCPCS: 32555; 36415; 71020; 80048; 85025; 85610; 85730; 87070; 87205; 94640; 96374; 99283; 99284

== ENCOUNTER 2017-02-28 12:11 | Outpatient (CLI) | payer MEDICARE, OTHER | END 2017-02-28 12:12 | disposition EMS.NT | LOC: EMS 12:11 | PROVIDERS: ATTEND Surgery | DX: R04.0 Epistaxis (principal) ==

== ENCOUNTER 2017-03-10 13:08 | Outpatient (CLI) | payer MEDICARE, OTHER | END 2017-03-10 23:59 | disposition short-term general hospital (02) | LOC: EMS 13:08 | PROVIDERS: ATTEND Surgery | DX: R06.02 Shortness of breath (principal); R05 Cough; R53.83 Other fatigue | CPT/HCPCS: A0425; A0429 ==

== ENCOUNTER 2017-04-08 21:05 | Outpatient (CLI) | payer MEDICARE, OTHER | END 2017-04-08 21:06 | disposition EMS.NT | LOC: EMS 21:05 | PROVIDERS: ATTEND Surgery | DX: R68.89 Other general symptoms and signs (principal) ==